=== PATIENT | male | born 1980 | race African-American/Black ===

== ENCOUNTER 2016-09-14 09:03 | Emergency (ER) | payer OTHER ==
[2016-09-14 09:10] VITALS: BMI 25.8
--- NOTE | 2016-09-14 09:12 | PDOC ---
History of Present Illness - General History Source: Patient Exam Limitations: Other (limited due past medical history) - History of Present Illness Initial Comments: 09/14/16 10:56 The patient is a 35 year old male with a significant past medical history of paranoid schizophrenia, and schizoaffective disorder, sent from [facility] by [facility] to the Emergency Department with abdominal pain and multiple episodes of vomiting. The patient describes the abdominal pain as intermittent and diffuse throughout his abdomen. He reports nausea and vomiting, exacerbated by pressing on his abdomen. He admits that the nausea is present before and after meals, pt cannot elaborate on how long he has been feeling pain for. Today he admits that he only ate chips. Patient is a poor historian due to his psychiatric history. The patient denies chest pain, sob, diarrhea, or constipation. Patient denies fever, chills, or cough. Patient denies dizziness, or headache. <Irma Esteban - Last Filed: 09/14/16 10:54> <Alvin Weaver - Last Filed: 09/16/16 07:14> - General Chief Complaint: Pain Stated Complaint: ABD PAIN Time Seen by Provider: 09/14/16 09:12 Past History <Irma Esteban - Last Filed: 09/14/16 10:54> - Past Medical History Psychiatric Problems: Yes (paranoid schizophrenia, schzoaffective) - Psycho/Social/Smoking Cessation Hx Anxiety: No Suicidal Ideation: No Smoking History: Never smoked Have you smoked in the past 12 months: No Number of Cigarettes Smoked Daily: 20 Information on smoking cessation initiated: No Hx Alcohol Use: No Drug/Substance Use Hx: No Substance Use Type: None <Alvin Weaver - Last Filed: 09/16/16 07:14> - Past Medical History Allergies/Adverse Reactions: Allergies Allergy/AdvReac Type Severity Reaction Status Date / Time shellfish derived Allergy Verified 09/14/16 09:11 Home Medications: Ambulatory Orders Benztropine Mesylate 1 mg PO BID 09/14/16 Bupropion HBr [Aplenzin] 150 mg PO DAILY 09/14/16 Quetiapine Fumarate [Seroquel] 100 mg PO HS 09/14/16 Risperidone [Risperdal M-Tab] 4 mg PO BID 09/14/16 Sertraline HCl [Zoloft] 200 mg PO DAILY 09/14/16 Trazodone HCl 100 mg PO HS 09/14/16 Review of Systems - Review of Systems Able to Perform ROS?: No (limited ) Comments:: 09/14/16 10:56 Limited due to patient's psychiatric history. <Irma Esteban - Last Filed: 09/14/16 10:54> - Review of Systems Comments:: 09/14/16 11:57 Constitutional - no reported Fever, Chills, HEENT: no reported vision changes, sore throat Respiratory: no reported cough, sob, hemoptysis Cardiac: no reported chest pain, palpitations, light headedness, leg swelling Abd/GI: +abd pain, nausea, vomiting, no reported blood per rectum, melena, diarrhea : no reported dysuria, frequency, discharge Musculskelatal - no reported back pain, joint swelling skin - no reported bruising, erythema, rash neurological: no reported headache, numbness, focal weakness, tingling, ataxia, hematologic: no reported anemia, easy bruising, easy bleeding <Alvin Weaver - Last Filed: 09/16/16 07:14> *Physical Exam - Vital Signs Last Vital Signs Temp Pulse Resp BP Pulse Ox 97.6 F 88 18 119/90 100 09/14/16 09:06 09/14/16 09:06 09/14/16 09:06 09/14/16 09:06 09/14/16 09:06 - Physical Exam Comments: 09/14/16 10:57 GENERAL: The patient is awake, alert, Nontoxic - in no acute distress. HEAD: Normocephalic, atraumatic. EYES: extraocular movements intact, sclera anicteric, conjunctiva clear. ENT: Normal voice, Moist mucous membranes. NECK: Normal range of motion, supple LUNGS: Breath sounds equal, clear to auscultation bilaterally. No wheezes, no rhonchi, no rales. HEART: Regular rate and rhythm, normal S1 and S2 without murmur, rub or gallop. ABDOMEN: Soft, nontender, normoactive bowel sounds. No guarding, no rebound. . No CVA tenderness EXTREMITIES: Normal range of motion, no edema. No clubbing or cyanosis. No cords, erythema, or tenderness. NEUROLOGICAL: No facial assymetry, Normal speech, PSYCH: Normal mood, flat affect, slow in answering questions SKIN: Warm, Dry, normal turgor, <Irma Esteban - Last Filed: 09/14/16 10:54> - Vital Signs Last Vital Signs Temp Pulse Resp BP Pulse Ox 97.6 F 88 18 119/90 100 09/14/16 09:06 09/14/16 09:06 09/14/16 09:06 09/14/16 09:06 09/14/16 09:06 <Alvin Weaver - Last Filed: 09/16/16 07:14> Heart Score/ECG Review - ECG Impressions Comment:: 09/14/16 12:29 Twelve-lead EKG was performed and reviewed by me. There is normal sinus rhythm with a normal rate. The axis is normal. The intervals are normal. There is normal R wave progression There are no ST or T wave abnormalities. Nonspecific T-wave inversion in lead 3 <Alvin Weaver - Last Filed: 09/16/16 07:14> ED Treatment Course - LABORATORY CBC & Chemistry Diagram: 09/14/16 09:20 09/14/16 09:20 - ADDITIONAL ORDERS Additional order review: Laboratory Results 09/14/16 09:20 Sodium 136 Potassium 4.0 Chloride 101 Carbon Dioxide 28 Anion Gap 7 L BUN 11 Creatinine 1.0 Creat Clearance w eGFR > 60 Random Glucose 111 H Calcium 9.5 Total Bilirubin 0.5 AST 22 ALT 33 Alkaline Phosphatase 74 Total Protein 7.7 Albumin 4.3 Lipase 139 09/14/16 09:20 RBC 4.82 MCV 85.2 MCHC 34.4 RDW 14.0 MPV 7.4 L Neutrophils % 49.8 Lymphocytes % 31.0 Monocytes % 14.4 H Eosinophils % 3.9 Basophils % 0.9 - Medications Given in the ED: ED Medications Discontinued Medications Generic Name Dose Route Start Last Admin Trade Name Freq PRN Reason Stop Dose Admin Al Hydroxide/Mg Hydroxide 30 ml 09/14/16 09:21 09/14/16 09:37 Mylanta Suspension - PO 09/14/16 09:22 30 ml ONCE ONE Administration Famotidine/Sodium Chloride 20 50 mls @ 100 mls/hr 09/14/16 09:21 09/14/16 09:38 mg/ Miscellaneous IVPB 09/14/16 09:50 100 mls/hr ONCE ONE Administration Sodium Chloride 1,000 mls @ 1,000 mls/hr 09/14/16 09:21 09/14/16 09:38 Normal Saline - IV 09/14/16 10:20 Not Given .Q1H ONE Ondansetron HCl 4 mg 09/14/16 09:22 09/14/16 09:38 Zofran Injection IVPB 09/14/16 09:23 4 mg ONCE ONE Administration <Irma Esteban - Last Filed: 09/14/16 10:54> - LABORATORY CBC & Chemistry Diagram: 09/14/16 09:20 09/14/16 09:20 <Alvin Weaver - Last Filed: 09/16/16 07:14> Medical Decision Making - Medical Decision Making 09/14/16 09:23 35y M hx of schizoaffective disorder, paranoid schizophrenia presents with nausea, vomiting, and abdominal pain. The pts history is limited due to the pts psychiatric history. On exam the pt appears well, has a soft abdomen. will treat the pt symptomatically with zofran,pepcpid/maalox. will reassess. differential is wide due to the pts limited history, but consider possible kidney stones, gallstones, gastritis, also infectious pathology such as appendicitis will reassess and consider imaging depending on the pts repeat exam. 09/14/16 11:56 pts labs reviewed unremarkble pt reassesed states he feels fine now without any pain the pts abdomen is soft nontender on reassess pt tolerating oral intake will dc the pt with pmd fu return precuations were discussed I discussed the physical exam findings, ancillary test results and final diagnoses with the patient. I answered all of the patient's questions. The patient was satisfied with the care received and felt comfortable with the discharge plan and treatment plan. The patient will call their primary care physician within 24 hours to arrange follow-up and will return to the Emergency Department with any new, persistent or worsening symptoms. <Alvin Weaver - Last Filed: 09/16/16 07:14> *DC/Admit/Observation/Transfer - Attestations Scribe Attestion: 09/14/16 10:57 Documentation prepared by Irma Esteban, acting as medical secretary teacher for Alvin Weaver MD. <Irma Esteban - Last Filed: 09/14/16 10:54> - Discharge Dispostion Admit: No <Alvin Weaver - Last Filed: 09/16/16 07:14> Diagnosis at time of Disposition: Nausea & vomiting Qualifiers: Vomiting type: unspecified Vomiting Intractability: non-intractable Qualified Code(s): R11.2 - Nausea with vomiting, unspecified Abdominal pain Qualifiers: Abdominal location: unspecified location Qualified Code(s): R10.9 - Unspecified abdominal pain - Discharge Dispostion Disposition: HOME Condition at time of disposition: Improved - Referrals Referrals: Staci Landaverde MD [Primary Care Provider] - - Patient Instructions Printed Discharge Instructions: DI for Abdominal Pain-Adult Additional Instructions: Return to the emergency department immediately with ANY new, persistent or worsening symptoms including worsening abdominal pain, fevers, inability to tolerate oral intake, chest pain, shortness of breath or any other concerns. Stay well hydrated. You MUST call and follow up with your doctor tomorrow. Your emergency department visit is not complete without a followup with your doctor for reevaluation. Please make sure your doctor reviews the results of your emergency evaluation. Print Language: MOZAMBICAN
[2016-09-14] MEDS ORDERED: SODIUM CHLORIDE 1,000 ML IV ONE (09:21)
[2016-09-14] MEDS ORDERED: FAMOTIDINE 20 MG/50 ML IVPB 20 MG in PREMIX 50 IVPB ONE (09:21)
[2016-09-14] MEDS ORDERED: MAG HYDROX/AL HYDROX/SIMETH 355 ML ORAL.SUSP PO ONE (09:21)
[2016-09-14] MEDS ORDERED: ONDANSETRON 4 MG/2 ML VIAL IVPB ONE (09:22)
[2016-09-14 09:34] LABS: BASOPHIL 0.9 % (0-2.0); EOSINOPHIL 3.9 % (0-4.5); MCH 29.3 pg (25.7-33.7); MCHC 34.4 g/dl (32.0-35.9); MEAN CELL VOLUME 85.2 fl (80-96); MEAN PLT VOLUME 7.4 fl (7.5-11.1); NEUTROPHILS 49.8 % (42.8-82.8); PLATELET COUNT 169 K/MM3 (134-434); WHITE BLOOD COUNT 6.6 K/mm3 (4.0-10.0)
[2016-09-14 10:01] LABS: ALBUMIN 4.3 g/dl (3.4-5.0); ANION GAP 7 (8-16); CALCIUM 9.5 mg/dL (8.5-10.1); CO2 28 mmol/L (21-32); COCKROFT - GAULT 104.83; GLUCOSE,RANDOM 111 mg/dL (74-106); SGOT/AST 22 U/L (15-37); SGPT/ALT 33 U/L (12-78)
[2016-09-14 10:03] LABS: ALK PHOS 74 U/L (45-117); BILIRUBIN,TOTAL 0.5 mg/dL (0.2-1.0); TOT PROT 7.7 g/dl (6.4-8.2)
--- NOTE | 2016-09-14 10:30 | EKG ---
Test Reason : Blood Pressure : / mmHG Vent. Rate : 077 BPM Atrial Rate : 077 BPM P-R Int : 170 ms QRS Dur : 092 ms QT Int : 412 ms P-R-T Axes : 020 -01 -03 degrees QTc Int : 466 ms NORMAL SINUS RHYTHM NORMAL ECG NO PREVIOUS ECGS AVAILABLE Confirmed by ADE AMBROSE MD ([id number]) on 09/14/2016 10:29:23 AM Referred By: Confirmed By:ADE AMBROSE MD
[2016-09-14 11:10] LABS: URINE APPEARANCE CLEAR; URINE BILIRUBIN NEGATIVE (NEGATIVE); URINE BLOOD NEGATIVE (NEGATIVE); URINE COLOR STRAW; URINE GLUCOSE (UA) NEGATIVE (NEGATIVE); URINE KETONE NEGATIVE (NEGATIVE); URINE LEUK ESTERASE NEGATIVE (NEGATIVE); URINE NITRITE NEGATIVE (NEGATIVE); URINE PROTEIN NEGATIVE (NEGATIVE); URINE UROBILINOGEN NEGATIVE E.U./dl (0.2-1.0)
[2016-09-14 12:56] VITALS: BP 120/87; PULSE 80; TEMP 98
== END 2016-09-14 13:19 | disposition home or self-care (01) ==
LOC: JER 09:03
DX: R10.9 Unspecified abdominal pain (principal); R11.2 Nausea with vomiting, unspecified; F20.0 Paranoid schizophrenia; F17.210 Nicotine dependence, cigarettes, uncomplicated
CPT/HCPCS: 36415; 80053; 81003; 83690; 85025; 93005; 93010; 99284-25

== ENCOUNTER 2016-09-14 21:48 | Emergency (ER) | payer OTHER ==
[2016-09-14 22:31] VITALS: TEMP 99; BMI 30.8
--- NOTE | 2016-09-14 22:31 | PDOC ---
History of Present Illness - General History Source: EMS Exam Limitations: Clinical Condition - History of Present Illness Initial Comments: 09/14/16 22:35 The patient is a 35 year old male with significant past medical history of paranoid schizophrenia and schizoaffective disorder who presents to the ED BIBA from living facility for abdominal pain. The patients history is limited due to the clinical condition. Patient was seen earlier today for similar complaint , where he was treated and release. As per EMS, patient has been walking around since discharge. When he finally returned back to his living facility, he began to have complaints of abdominal pain again. Patients vital signs are stable. Allergies: NKDA Social History: No alcohol, tobacco, or drug use reported. Past Surgical History: None reported PCP: Dr. Staci Landaverde <Mansi Simms - Last Filed: 09/14/16 22:40> - General History Source: EMS <Kendrick Gutierrez - Last Filed: 09/18/16 19:20> - General Chief Complaint: Pain Stated Complaint: ABDOMINAL PAIN Time Seen by Provider: 09/14/16 22:29 Past History <Mansi Simms - Last Filed: 09/14/16 22:40> - Past Medical History Psychiatric Problems: Yes (paranoid schizophrenia, schzoaffective) - Psycho/Social/Smoking Cessation Hx Anxiety: No Suicidal Ideation: No Smoking History: Never smoked Have you smoked in the past 12 months: No Number of Cigarettes Smoked Daily: 20 Hx Alcohol Use: No Drug/Substance Use Hx: No Substance Use Type: None <Kendrick Gutierrez - Last Filed: 09/18/16 19:20> - Past Medical History Allergies/Adverse Reactions: Allergies Allergy/AdvReac Type Severity Reaction Status Date / Time shellfish derived Allergy Verified 09/14/16 09:11 Home Medications: Ambulatory Orders Benztropine Mesylate 1 mg PO BID 09/14/16 Bupropion HBr [Aplenzin] 150 mg PO DAILY 09/14/16 Quetiapine Fumarate [Seroquel] 100 mg PO HS 09/14/16 Risperidone [Risperdal M-Tab] 4 mg PO BID 09/14/16 Sertraline HCl [Zoloft] 200 mg PO DAILY 09/14/16 Trazodone HCl 100 mg PO HS 09/14/16 Review of Systems - Review of Systems Able to Perform ROS?: No Comments:: 09/14/16 22:35 Unable to obtain due to patient's clinical condition. <Mansi Simms - Last Filed: 09/14/16 22:40> *Physical Exam - Vital Signs Last Vital Signs Temp Pulse Resp BP Pulse Ox 99 F 96 H 22 126/66 95 09/14/16 22:27 09/14/16 22:27 09/14/16 22:27 09/14/16 22:27 09/14/16 22:27 - Physical Exam Comments: 09/14/16 22:35 GENERAL: Well-appearing, well-nourished. Somnolent, but maintaining airway. No apparent distress. HEENT: Normocephalic, atraumatic. PERRL, EOM intact. CARDIOVASCULAR: Normal S1, S2. Regular rate and rhythm. PULMONARY: Clear to auscultation bilaterally. ABDOMEN: Soft, non-distended, non-tender. No rebound or guarding. EXTREMITIES: Normal ROM in all four extremities. No gross deformities. SKIN: Warm, dry. No rash NEUROLOGICAL: Somnolent, but good muscle tone. <Mansi Simms - Last Filed: 09/14/16 22:40> Heart Score/ECG Review - ECG Impressions Comment:: 09/14/16 22:40 NSR @77bpm Normal ECG <Mansi Simms - Last Filed: 09/14/16 22:40> ED Treatment Course - LABORATORY CBC & Chemistry Diagram: 09/14/16 22:54 09/15/16 00:20 <Kendrick Gutierrez - Last Filed: 09/18/16 19:20> Medical Decision Making - Medical Decision Making 09/18/16 19:20 Dr. Gutierrez: The scribe's documentation has been prepared under my direction and personally reviewed by me in its entirery. I confirm that the note above accurately reflects all work, treatment, procedures, and medical decision making performed by me. <Kendrick Gutierrez - Last Filed: 09/18/16 19:20> *DC/Admit/Observation/Transfer - Attestations Scribe Attestion: 09/14/16 22:36 Documentation prepared by Mansi Simms, acting as medical insurance claims specialist for Kendrick Gutierrez MD/DO. <Mansi Simms - Last Filed: 09/14/16 22:40> - Discharge Dispostion Admit: No <Kendrick Gutierrez - Last Filed: 09/18/16 19:20> Diagnosis at time of Disposition: Drug use Abdominal pain Qualifiers: Abdominal location: unspecified location Qualified Code(s): R10.9 - Unspecified abdominal pain - Discharge Dispostion Disposition: HOME Condition at time of disposition: Stable - Referrals Referrals: Staci Landaverde MD [Primary Care Provider] - - Patient Instructions Printed Discharge Instructions: DI for Abdominal Pain-Adult Additional Instructions: Thank you for coming in to the ER Please return for evaluation if you need to be re evaluated
[2016-09-14 23:05] LABS: BASOPHIL 0.6 % (0-2.0); EOSINOPHIL 1.2 % (0-4.5); MCH 28.5 pg (25.7-33.7); MCHC 33.6 g/dl (32.0-35.9); MEAN PLT VOLUME 7.8 fl (7.5-11.1); NEUTROPHILS 59.6 % (42.8-82.8); PLATELET COUNT 175 K/MM3 (134-434); RDW 14.2 % (11.9-15.9); WHITE BLOOD COUNT 8.3 K/mm3 (4.0-10.0)
[2016-09-14 23:07] LABS: URINE APPEARANCE CLEAR; URINE BILIRUBIN NEGATIVE (NEGATIVE); URINE COLOR YELLOW; URINE GLUCOSE (UA) NEGATIVE (NEGATIVE); URINE KETONE NEGATIVE (NEGATIVE); URINE LEUK ESTERASE NEGATIVE (NEGATIVE); URINE NITRITE NEGATIVE (NEGATIVE); URINE PROTEIN NEGATIVE (NEGATIVE); URINE UROBILINOGEN 2.0 E.U/dl E.U./dl (0.2-1.0)
[2016-09-14 23:13] LABS: URINE MARIJUANA THC NEGATIVE ng/ml (CUTOFF=50)
[2016-09-14 23:44] LABS: URINE BLOOD 3+ (NEGATIVE)
[2016-09-15 00:14] LABS: URINE BACTERIA RARE /hpf (NONE SEEN); URINE HYALINE CAST 5 /lpf; URINE MUCUS RARE; URINE RBC 382 /hpf (0-3); URINE WBC 7 /hpf (3-5)
[2016-09-15 00:54] LABS: ALBUMIN 4.2 g/dl (3.4-5.0); ALK PHOS 71 U/L (45-117); ANION GAP 9 (8-16); BILIRUBIN,TOTAL 0.6 mg/dL (0.2-1.0); CALCIUM 9.6 mg/dL (8.5-10.1); CO2 27 mmol/L (21-32); COCKROFT - GAULT 128.05; CREATININE 1.1 mg/dL (0.7-1.3); GLUCOSE,RANDOM 104 mg/dL (74-106); SGOT/AST 24 U/L (15-37); SGPT/ALT 32 U/L (12-78); TOT PROT 7.3 g/dl (6.4-8.2)
--- NOTE | 2016-09-15 07:20 | PDOC ---
*Physical Exam - Vital Signs Last Vital Signs Temp Pulse Resp BP Pulse Ox 99 F 71 16 108/67 100 09/14/16 22:27 09/15/16 06:56 09/15/16 06:56 09/15/16 06:56 09/15/16 06:56 ED Treatment Course - LABORATORY CBC & Chemistry Diagram: 09/14/16 22:54 09/15/16 00:20 - ADDITIONAL ORDERS Additional order review: Laboratory Results 09/15/16 09/14/16 09/14/16 00:20 22:54 22:54 Sodium 137 Cancelled Potassium 4.2 Cancelled Chloride 101 Cancelled Carbon Dioxide 27 Cancelled Anion Gap 9 Cancelled BUN 15 D Cancelled Creatinine 1.1 Cancelled Creat Clearance w eGFR > 60 Cancelled Random Glucose 104 Cancelled Calcium 9.6 Cancelled Total Bilirubin 0.6 Cancelled AST 24 Cancelled ALT 32 Cancelled Alkaline Phosphatase 71 Cancelled Creatine Kinase Cancelled Troponin I Cancelled Total Protein 7.3 Cancelled Albumin 4.2 Cancelled Urine Color Urine Appearance Urine pH Urine Protein Urine Glucose (UA) Urine Ketones Urine Blood Urine Nitrite Urine Bilirubin Urine Urobilinogen Ur Leukocyte Esterase Urine RBC Urine WBC Urine Bacteria Hyaline Casts Urine Mucus Opiates Screen Methadone Screen Barbiturate Screen Phencyclidine Screen Ur Amphetamines Screen MDMA (Ecstasy) Screen Benzodiazepines Screen Cocaine Screen U Marijuana (THC) Screen Alcohol, Quantitative < 5.0 Acetone, Qual Cancelled 09/14/16 09/14/16 22:45 22:45 Sodium Potassium Chloride Carbon Dioxide Anion Gap BUN Creatinine Creat Clearance w eGFR Random Glucose Calcium Total Bilirubin AST ALT Alkaline Phosphatase Creatine Kinase Troponin I Total Protein Albumin Urine Color Yellow Urine Appearance Clear Urine pH 6.0 Urine Protein Negative Urine Glucose (UA) Negative Urine Ketones Negative Urine Blood 3+ H Urine Nitrite Negative Urine Bilirubin Negative Urine Urobilinogen 2.0 e.u/dl Ur Leukocyte Esterase Negative Urine RBC 382 Urine WBC 7 Urine Bacteria Rare Hyaline Casts 5 Urine Mucus Rare Opiates Screen Negative Methadone Screen Negative Barbiturate Screen Negative Phencyclidine Screen Negative Ur Amphetamines Screen Negative MDMA (Ecstasy) Screen Positive Benzodiazepines Screen Positive Cocaine Screen Negative U Marijuana (THC) Screen Negative Alcohol, Quantitative Acetone, Qual 09/14/16 22:54 RBC 4.73 MCV 85.0 MCHC 33.6 RDW 14.2 MPV 7.8 Neutrophils % 59.6 Lymphocytes % 25.7 Monocytes % 12.9 H Eosinophils % 1.2 Basophils % 0.6 Medical Decision Making - Medical Decision Making 09/15/16 07:16 I received this patient on sign out Briefly, he was seen yesterday for abdominal pain Work up was apparently negative Pt left the ER yesterday and did not make it back to his facility in a timely manner when he finally did, he was somnolent and was sent back to the ER The patient has been in the ER for the past [address] negative Labs nml with the exception of... 09/15/16 07:22 Laboratory Tests 09/14/16 22:45 MDMA (Ecstasy) Screen Positive Benzodiazepines Screen Positive 09/15/16 07:24 Will arrange transportation once pt is more awake Pt awoke, tolerated breakfast Will discharge to his facility *DC/Admit/Observation/Transfer Diagnosis at time of Disposition: Drug use Abdominal pain Qualifiers: Abdominal location: unspecified location Qualified Code(s): R10.9 - Unspecified abdominal pain - Discharge Dispostion Disposition: HOME Condition at time of disposition: Stable Admit: No - Referrals Referrals: Staci Landaverde MD [Primary Care Provider] - - Patient Instructions Printed Discharge Instructions: DI for Abdominal Pain-Adult Additional Instructions: Thank you for coming in to the ER Please return for evaluation if you need to be re evaluated - Post Discharge Activity
[2016-09-15 08:15] VITALS: BP 130/99; PULSE 77
== END 2016-09-15 09:23 | disposition home or self-care (01) ==
LOC: JER 21:48
DX: F19.90 Other psychoactive substance use, unspecified, uncomplicated (principal); R10.9 Unspecified abdominal pain; F20.0 Paranoid schizophrenia
CPT/HCPCS: 36415; 70450-TC; 80053; 80307; 81003; 81015; 83690; 85025; 93005; 93010; 99282-25; 99284-25; G0480